=== PATIENT | female | born 1970 | race Caucasian/White ===

== ENCOUNTER 2017-12-30 19:56 | Emergency (ER) | payer BC ==
[2017-12-30] MEDS ORDERED: Ondansetron ODT TAB* 4 MG PO ONE (21:19)
--- NOTE | 2017-12-30 21:26 | UC ---
General HPI - HPI Summary HPI Summary: Patient states that she developed a sore throat 2 days ago followed by a bad cough, chills and body aches. She reports a temp to 99 citing that her baseline is 97. On review of systems, she admits to feeling short of breath due to the congestion in her throat as well as some wheezing. She admits to some nausea but denies any actual vomiting or diarrhea. She had not yet gotten her flu shot this year. - History of Current Complaint Chief Complaint: UCGeneralIllness Stated Complaint: COUGH Time Seen by Provider: 12/30/17 21:07 Hx Obtained From: Patient Hx Last Menstrual Period: 04/15/11 Onset/Duration: Gradual Onset Timing: Constant Pain Intensity: 6 Alleviating: nothing Associated Signs & Symptoms: Positive: Cough, Fever, Nausea, SOB, Wheezing - Allergy/Home Medications Allergies/Adverse Reactions: Allergies Allergy/AdvReac Type Severity Reaction Status Date / Time No Known Allergies Allergy Verified 12/30/17 20:54 Home Medications: Home Medications Acetaminophen TAB* [Tylenol TAB*] 650 mg PO Q4H PRN 12/30/17 [History Confirmed 12/30/17] PMH/Surg Hx/FS Hx/Imm Hx - Additional Past Medical History Additional PMH: Lupus - Surgical History Surgical History: Yes Surgery Procedure, Year, and Place: C-sect. 2 ablations. hysterectomy. breast biopsy - Family History Known Family History: Positive: None - Social History Occupation: Employed Full-time Lives: With Family Alcohol Use: Occasionally Substance Use Type: None Smoking Status (MU): Never Smoked Tobacco - Immunization History Vaccination Up to Date: Yes Review of Systems Constitutional: Fever, Chills Skin: Negative Eyes: Negative ENT: Sore Throat Respiratory: Shortness Of Breath, Cough Cardiovascular: Negative Gastrointestinal: Vomiting - on exam, Nausea Genitourinary: Negative Motor: Negative Neurovascular: Negative Musculoskeletal: Myalgia Neurological: Negative Psychological: Negative Is Patient Immunocompromised?: Yes All Other Systems Reviewed And Are Negative: Yes Physical Exam Triage Information Reviewed: Yes Appearance: Ill-Appearing - but non toxic Vital Signs: Initial Vital Signs Temp 99.3 F 12/30/17 20:57 Pulse 109 12/30/17 20:57 Resp 16 12/30/17 20:57 BP 114/73 12/30/17 20:57 Pulse Ox 100 12/30/17 20:57 Eyes: Positive: Conjunctiva Clear ENT: Positive: Pharynx normal, TMs normal. Negative: Nasal congestion, Nasal drainage Neck: Positive: Supple, Nontender, Enlarged Nodes @ - peritonsialr. Negative: Nuchal Rigidity Respiratory: Positive: Lungs clear, Normal breath sounds Cardiovascular: Positive: No Murmur, Tachycardia - 96 Abdomen Description: Positive: Nontender, No Organomegaly, Soft, Other: - vomited x 1 during her exam. Negative: Distended, Guarding Bowel Sounds: Positive: Present Musculoskeletal: Positive: ROM Intact Neurological: Positive: Alert Psychological: Positive: Normal Response To Family, Age Appropriate Behavior Skin Exam: Normal Diagnostics - Laboratory Diagnostic Studies Completed/Ordered: rapid strep=negative. rapid flu=negative - Radiology No standard instances Xray Interpretation: No Acute Changes - wet read Re-Evaluation - Re-Evaluation First Eval Re-Evaluation Time: 22:09 Change: Worse - pt c/o feeling much worse since her arrival. still sense of sob , now very weak. notes seems much worse just since her initial exam. both agree to ER transfer via EMS. Course/Dx - Course Course Of Treatment: rapid flu and strep tests are negative. wet read of CXR= NAD. [facility] ER called, report given to Dr Maldonado.advised of pt feeling weak, sob , n/v and much worse in the short time she has been here with neg rapid strep, flu and cxr. also advised pt immune suppression from lupus medications. - Differential Dx - Multi-Symptom Provider Diagnoses: DYSPNEA, WEAKNESS, IMMUNE SUPPRESSION Discharge - Sign-Out/Discharge Documenting (check all that apply): Patient Departure All imaging exams completed and their final reports reviewed: No - Discharge Plan Condition: Stable Disposition: TRANS HIGHER LVL OF CARE FAC Referrals: Gena Castillo [Primary Care Provider] - - Billing Disposition and Condition Condition: STABLE Disposition: Trans Higher Lvl of Care Fac
[2017-12-30 21:58] VITALS: BP 140/53
--- NOTE | 2017-12-31 08:00 | RAD ---
Indication: Chills, cough. 2 views of the chest including dual energy PA views demonstrates no mediastinal shift. Heart is of normal size and configuration. Lung bernstein appear hyperinflated. No pleural fluid, pneumonia or pneumothorax is noted. When compared to previous exam of April 20, 2012 no significant change is noted. IMPRESSION: No active cardiopulmonary disease is noted. R0
--- NOTE | 2017-12-31 15:28 | UC ---
- Progress Note Progress Note: NO X-RAY READING DISCREPANCY ON 12/30/17 Re-Evaluation - Re-Evaluation First Eval Re-Evaluation Time: 22:09 Change: Worse - pt c/o feeling much worse since her arrival. still sense of sob , now very weak. notes seems much worse just since her initial exam. both agree to ER transfer via EMS. Discharge - Sign-Out/Discharge Documenting (check all that apply): Patient Departure All imaging exams completed and their final reports reviewed: Yes - Discharge Plan Condition: Stable Disposition: TRANS HIGHER LVL OF CARE FAC Referrals: Gena Castillo [Primary Care Provider] - - Billing Disposition and Condition Condition: STABLE Disposition: Trans Higher Lvl of Care Fac
== END 2017-12-30 22:30 | disposition short-term general hospital (02) ==
LOC: UCCORT 19:56
DX: R06.00 Dyspnea, unspecified (principal); R53.1 Weakness; D84.9 Immunodeficiency, unspecified
CPT/HCPCS: 71046; 87651; 93005; 99213; A9270-GY; G0463